=== PATIENT | male | born 1995 | race Caucasian/White ===

== ENCOUNTER 2017-08-09 11:34 | Emergency (ER) | payer BC ==
--- NOTE | 2017-08-09 14:26 | XR ---
EXAMINATION TYPE: XR chest 2V DATE OF EXAM: 08/09/2017 COMPARISON: 05/07/2011 TECHNIQUE: PA and lateral views submitted. HISTORY: Shortness of breath and cough FINDINGS: The lungs are clear and there is no pneumothorax, pleural effusion, or focal pneumonia. Pleural thic kening stable. IMPRESSION: 1. No acute process.
--- NOTE | 2017-08-09 14:54 | ED ---
General Adult HPI - General Chief complaint: Shortness of Breath Stated complaint: Cough/sob Time Seen by Provider: 08/09/17 13:55 Source: patient, RN notes reviewed Mode of arrival: ambulatory Limitations: no limitations - History of Present Illness Initial comments: Patient's 22-year-old male who presents emergency room today with chief complaint of cough congestion over the last 2 weeks. It is edematous. Production it's been white in color. He does admit some fevers and sternal discharged to emergency room. Admits to a sore throat. She saw urgent care was diagnosed with a upper respiratory infection placed on cough medication. Associated negative strep test. Patient does admit that he still having the same symptoms. Better. Denies nosebleeds or symptoms. Patient denies any recent fever, chills , shortness of breath, chest pain, back pain, abdominal pain, nausea or vomiting , numbness or tingling, dysuria or hematuria, constipation or diarrhea, headaches or visual changes, or any other complaints. - Related Data Previous Rx's Medication Instructions Recorded Azithromycin [Zithromax Z-pack] 0 mg PO DIRECTED #6 tab 08/09/17 Allergies Allergy/AdvReac Type Severity Reaction Status Date / Time No Known Allergies Allergy Verified 08/09/17 14:09 Review of Systems ROS Statement: Those systems with pertinent positive or pertinent negative responses have been documented in the HPI. ROS Other: All systems not noted in ROS Statement are negative. Past Medical History Past Medical History: No Reported History History of Any Multi-Drug Resistant Organisms: None Reported Past Surgical History: No Surgical Hx Reported Past Psychological History: No Psychological Hx Reported Smoking Status: Never smoker Past Alcohol Use History: Occasional Past Drug Use History: None Reported General Exam - General Exam Comments Initial Comments: General: The patient is awake and alert, in no distress, and does not appear acutely ill. Eye: Pupils are equal, round and reactive to light, extra-ocular movements are intact. No nystagmus. There is normal conjunctiva bilaterally. No signs of icterus. Ears, nose, mouth and throat: There are moist mucous membranes and no oral lesions. Neck: The neck is supple, there is no tenderness or JVD. Cardiovascular: There is a regular rate and rhythm. No murmur, rub or gallop is appreciated. Respiratory: Lungs are clear to auscultation, respirations are non-labored, breath sounds are equal. No wheezes, stridor, rales, or rhonchi. Musculoskeletal: Normal ROM, no tenderness. Strength 5/5. Sensation intact. Pulses equal bilaterally 2+. Neurological: A&O x 3. CN II-XII intact, There are no obvious motor or sensory deficits. Coordination appears grossly intact. Speech is normal. Skin: Skin is warm and dry and no rashes or lesions are noted. Psychiatric: Cooperative, appropriate mood & affect, normal judgment. Limitations: no limitations Course Vital Signs 08/09/17 08/09/17 11:44 14:42 Temperature 98.6 F 98.5 F Pulse Rate 92 67 Respiratory 18 18 Rate Blood Pressure 183/101 136/76 O2 Sat by Pulse 97 95 Oximetry Medical Decision Making - Medical Decision Making Strep test are negative. Emergency room. Patient's chest x-rays negative for any sign of a pneumonia. Patient does have cough congestion with production over the last 2 weeks. Will be covered with antibiotic for bronchitis. Advised to follow-up with family doctor over the next 2 days. Advised return to emergency room symptoms increase worsen. - Lab Data Lab Results 08/09/17 08/09/17 Range/Units 14:14 14:14 Heterophile Antibody Negative (Negative) Group A Strep Rapid Negative (Negative) Disposition Clinical Impression: Acute bronchitis Disposition: HOME SELF-CARE Condition: Good Instructions: Acute Bronchitis (ED) Additional Instructions: Please use medication as discussed. Please follow-up with family doctor in the next 2 days of symptoms have not improved. Please return to emergency room if the symptoms increase or worsen or for any other concerns. Prescriptions: Azithromycin [Zithromax Z-pack] 0 mg PO DIRECTED #6 tab Referrals: None,Stated [Primary Care Provider] - 1-2 days Marta Ferro MD [STAFF PHYSICIAN] - 1-2 days Time of Disposition: 14:53
[2017-08-10 23:02] VITALS: BP 136/76; PULSE 67; RESP 18; TEMP 98.5
== END 2017-08-09 15:00 | disposition home or self-care (01) ==
LOC: EC 11:34
DX: J20.9 Acute bronchitis, unspecified (principal)
CPT/HCPCS: 36415; 71046; 86308; 87081; 87430; 99285

== ENCOUNTER → 2017-08-17 | Outpatient (CLI) | payer BC | END | disposition home or self-care (01) | LOC: LABWHC1 16:08 | PROVIDERS: ATTEND Internal Medicine | DX: R05 Cough (principal) | CPT/HCPCS: 36415; 86615 ==